=== PATIENT | male | born 1945 | race Asian ===

== ENCOUNTER 2018-04-23 12:39 | Observation (INO) | payer OTHER ==
[2018-04-23] MEDS ORDERED: ALBUTEROL 3 ML DEYVIAL IH PRN (13:49)
[2018-04-23] MEDS ORDERED: ACETAMINOPHEN 325 MG TAB PO PRN (13:49)
[2018-04-23] MEDS ORDERED: HYDROCODONE/APAP 5/325 TAB PO PRN (13:49)
[2018-04-23 15:00] LABS: PLATELET COUNT 152 10^3/uL (150-400)
[2018-04-23] MEDS ORDERED: NS 1,000 ML IV SCH (15:00)
--- NOTE | 2018-04-23 15:30 | GHP ---
[f rep st] HISTORY AND PHYSICAL DATE OF ADMISSION: 04/23/2018 CHIEF COMPLAINT: Shortness of breath, cough. HISTORY OF PRESENT ILLNESS: The patient is a 73-year-old healthy man who comes in with a week of flu symptoms. He got sick with URI symptoms on Wednesday, coughing primarily with some muscle aches and lo w-grade fevers. He went in to see Dr. Nguyen, who did a viral panel. That was notable for influenza A. He was started on Tamiflu on the . At that time, he felt okay. His vital signs were stable. His oxygen levels were good. Over the next couple days, he said his symptoms were getting worse an d worse. He started having increasing cough, muscle aches, fevers, and weakness. He says his balanc e has been off, and he has fallen 2 times. He started coughing up more phlegm. Last night, after he fell, he opted to come in today to see the primary care clinic for further evaluation, at which ebony t they admitted him after finding him mildly hypoxic with a room air sat of 88% after walking into [facility]. Currently, he has not had a fever today. He has a productive cough, muscle aches, and fee ls weak. He blames his symptoms on the Tamiflu rather than progressive influenza. He has had no sig nificant nausea or vomiting, but has had poor appetite and poor p.o. intake over the last several day s. He is quite hungry today. He has had no urinary symptoms, except for slight decreased urination. No lower extremity edema. Positive muscle aches. REVIEW OF SYSTEMS: A 10-point review of systems was done and is negative, except as stated in the HP I. PAST MEDICAL HISTORY: Negative. PAST SURGICAL HISTORY: Negative. FAMILY HISTORY: Both parents are relatively healthy and lived to an older age. SOCIAL HISTORY: He is currently single. He has a daughter who lives in [place]. She is a cardio logist and is flying out tonight to see him. He denies tobacco use, marijuana use, or significant al cohol use. MEDICATIONS: He is taking Tamiflu; that was started on April 20. ALLERGIES: No known drug allergies. PHYSICAL EXAMINATION: VITAL SIGNS: He is afebrile. Heart rate is 63, with blood pressure 141/97. Respirations. He is 95% on room air. GENERAL: He is a very pleasant 73-year-old. He is in no obvi ous distress. He is alert and oriented. HEENT: Pupils are equal. Extraocular movements intact. M ucous membranes moist. Oropharynx is clear. NECK: Supple. HEART: Regular rate and rhythm with no significant murmur. LUNGS: Diminished bilaterally with some bronchial breath sounds. ABDOMEN: So ft, nontender to palpation. EXTREMITIES: No clubbing, cyanosis, or edema. MUSCULOSKELETAL: No sofiya nt effusions or deformities. NEUROLOGIC: He moves all 4 extremities. SKIN: Intact. No rash. PSY CHIATRIC: He is appropriate. Normal mood. LABORATORIES: CBC shows a white count of 6.8, normal H and H and platelet count. Differential is un remarkable, except for very mild monocytosis. Chemistry shows sodium of 129. BUN and creatinine are normal. Calcium is normal. Respiratory panel is positive for influenza A. ASSESSMENT AND PLAN: 1. 73-year-old presents with upper respiratory symptoms, progressive over the past several days, and positive for influenza A. Given his normal white count without a left shift, I suspect that his sym ptoms are likely from progressive influenza rather than a secondary pneumonia; however, I will get hi m a chest x-ray to rule out a lobar consolidation. Certainly, if he has evidence of a lobar pneumoni a, would consider treating him with antibiotics in addition to the Tamiflu. 2. Hyponatremia, likely from dehydration and poor oral intake over the past several days. Will give him some intravenous fluids. Follow with sodium tomorrow morning and monitor his oral intake. He d id have a big lunch today after arriving. 3. Hypoxic respiratory failure secondary to acute influenza with an oxygen saturation of 88% with ex ertion noted in the clinic. Will continue monitoring and supply supplemental oxygen as needed. 4. Balance and abnormal gait. The patient has had falls. I suspect this is likely from dehydration and weakness from his acute illness. Will have Physical Therapy work with him. 5. Deep venous thrombosis prophylaxis. Patient will likely be here less than 24 hours. Should he b e here for a longer stay, will add chemical prophylaxis. /[id number]/MODL
[2018-04-23] MEDS: OSELTAMIVIR PHOSPHATE 75 MG CAP PO SCH (19:12)
[2018-04-24] MEDS: OSELTAMIVIR PHOSPHATE 75 MG CAP PO SCH (09:35)
[2018-04-24 12:18] VITALS: BP 175/93
--- NOTE | 2018-04-24 13:48 | ASDISCHSUM ---
Discharge Information Plan Status:Home with No Needs Medically Cleared to Leave:04/23/2018 Discharge Date:04/24/2018 01:06 PM CM D/C Disposition:Home, Routine, Self-Care ADT D/C Disposition:Home, Routine, Self-Care Projected Discharge Date:04/24/2018 12:00 AM Transportation at D/C:Family Discharge Delay Reason: Follow-Up Date:04/24/2018 12:00 AM Discharge Slot:2 - 12:01 pm - 18:00 pm Final Diagnosis:hypoxic respiratory failure secondary to influenza Placement Information Patient Contact Information Contact Name:JOSUE Relationship:Daughter Address: Work Phone: City: [facility] Phone: State/[place] Code: Email: Financial Information Financial Class:Medicare Advantage Plans Primary Plan Desc:[employer] Primary Plan Number:[id number] Secondary Plan Desc: Secondary Plan Number: Assessment Information Intervention Information
--- NOTE | 2018-04-24 13:53 | GDS ---
[f rep st] DISCHARGE SUMMARY DIAGNOSIS: Influenza A with acute hypoxic respiratory failure. HOSPITAL COURSE: The patient is a 73-year-old healthy man who comes in with increasing cough and everett rtness of breath. He had been sick for a couple days, went to his primary care provider's office, an d was tested positive for influenza A. He was doing okay at the time, however, progressively got wor se over the next 2 days and went back to his primary care office at which time, he was hypoxic, weak, and was admitted for presumed pneumonia. Evaluation, included a chest x-ray, which showed no pneumo dominique, white count was normal, and I suspect all of his symptoms were due to severe influenza A. He wa s admitted overnight, hydrated, and continued on Tamiflu. Over the course of his hospitalization, he slowly improved to a point where he is ready to go home. CONDITION ON DISCHARGE: Good. Vital signs are stable. He has been afebrile. Heart rate is 63, blo od pressure is mildly elevated. He is 93% on room air. DISCHARGE MEDICATIONS: Please see discharge medication form. He will finish out his Tamiflu for 5 d ays. FOLLOWUP: He needs to follow up with Dr. Nguyen this week. /[id number]/MODL
--- NOTE | 2018-04-24 13:56 | ASMTDCNOTE ---
Case Management Discharge Discharge Order Complete? Answers: No Patient to Obtain Answers: Independently Medications Transportation Arranged Answers: Family/Friends Family Notified Answers: Yes Discharge Comments Notes: Chart review for discharge planning purposes: Patient is 73 y/o male with URI symptoms x 1 week with cough, muscle ache and low grade fevers. Patient was assessed by PCP and was found to be mildly hypoxic with room air sat of 88%. Patient admitted under observation and received discharge orders today. CM met with patient prior to discharge, patient states he will drive himself home and has support of his family. Patient states he will follow up as recommended. CM explained & delivered IM, patient signed for receipt, CM placed IM in back of chart. CM available to support if any additional CM needs arise. Date Signed: 04/24/2018 01:55 PM Electronically Signed By:Sun Macias
== END 2018-04-24 13:06 | disposition home or self-care (01) ==
LOC: F3E 12:49
PROVIDERS: ADMIT Internal Medicine; ATTEND Internal Medicine
DX: J10.1 Influenza due to other identified influenza virus with other respiratory manifestations (principal); J96.01 Acute respiratory failure with hypoxia; E87.1 Hypo-osmolality and hyponatremia; E86.0 Dehydration; R26.89 Other abnormalities of gait and mobility
CPT/HCPCS: 71046; 97161; G0378